=== PATIENT | male | born 1975 | race Caucasian/White ===

== ENCOUNTER 2016-10-14 02:47 | Emergency (ER) | payer MEDICAID | END 2016-10-14 04:26 | disposition home or self-care (01) | LOC: D.ER 02:47 | DX: S00.03XA Contusion of scalp, initial encounter (principal); Y04.2XXA Assault by strike against or bumped into by another person, initial encounter; Y93.89 Activity, other specified; Y92.89 Other specified places as the place of occurrence of the external cause; S31.159A Open bite of abdominal wall, unspecified quadrant without penetration into peritoneal cavity, initial encounter; Y04.1XXA Assault by human bite, initial encounter; F17.200 Nicotine dependence, unspecified, uncomplicated ==